=== PATIENT | male | born 2000 | race Hispanic/Latino ===

== ENCOUNTER 2025-06-13 11:38 | Outpatient (CLI) | payer OTHER | END 2025-06-13 11:39 | disposition home or self-care (01) | LOC: SCSRAD 11:38 | PROVIDERS: ATTEND Nurse Practitioner Family | DX: M25.511 Pain in right shoulder (principal) ==

== ENCOUNTER 2025-07-07 14:07 | Outpatient (CLI) | payer OTHER | END 2025-07-07 14:08 | disposition home or self-care (01) | LOC: SCSMRI 14:07 | PROVIDERS: ATTEND Family Medicine | DX: M25.511 Pain in right shoulder (principal); S46.911A Strain of unspecified muscle, fascia and tendon at shoulder and upper arm level, right arm, initial encounter ==